=== PATIENT | female | born 1945 | race Caucasian/White ===

== ENCOUNTER 2017-08-15 10:13 | Outpatient (CLI) | payer OTHER | END 2017-08-15 10:19 | disposition home or self-care (01) | LOC: MAMO-SONO 10:13 | DX: Z12.31 Encounter for screening mammogram for malignant neoplasm of breast (principal); Z87.898 Personal history of other specified conditions; D05.12 Intraductal carcinoma in situ of left breast ==

== ENCOUNTER 2018-09-14 08:28 | Outpatient (CLI) | payer OTHER | END 2018-09-14 08:38 | disposition home or self-care (01) | LOC: MAMO-SONO 08:28 | DX: D05.12 Intraductal carcinoma in situ of left breast (principal) ==

== ENCOUNTER 2019-10-12 07:23 | Outpatient (CLI) | payer OTHER | END 2019-10-12 07:25 | disposition home or self-care (01) | LOC: MAMO-SONO 07:23 | DX: Z12.31 Encounter for screening mammogram for malignant neoplasm of breast (principal); Z87.898 Personal history of other specified conditions; Z85.3 Personal history of malignant neoplasm of breast ==

== ENCOUNTER 2019-10-27 09:40 | Outpatient (CLI) | payer OTHER | END 2019-10-27 09:41 | disposition home or self-care (01) | LOC: MAMO-SONO 09:40 | DX: R92.8 Other abnormal and inconclusive findings on diagnostic imaging of breast (principal) ==

== ENCOUNTER → 2019-12-08 | Outpatient (CLI) | payer OTHER | END | disposition home or self-care (01) | LOC: SONOGRAMA 12:30 | DX: R92.8 Other abnormal and inconclusive findings on diagnostic imaging of breast (principal) ==